=== PATIENT | female | born 1985 | race Two or more races ===

== ENCOUNTER 2018-07-06 16:29 | Outpatient (CLI) | payer OTHER | END 2018-07-06 18:48 | disposition home or self-care (01) | LOC: NST 16:29 | DX: Z34.82 Encounter for supervision of other normal pregnancy, second trimester (principal) ==

== ENCOUNTER 2018-09-15 09:08 | Inpatient (IN) | payer OTHER ==
[~2018-09-15] VITALS: Ht 154.9 cm; Wt 56.7 kg
[2018-10-23] MEDS ORDERED: PROBIOTIC1 EAC2 (10:03)
[2018-10-23] MEDS ORDERED: PRENATAL TABLE1 EAC4 (10:03)
== END 2018-10-25 16:08 | DRG 807 ==
LOC: LDR 09-29 11:45 → OB/GYN 10-23 07:22
PROVIDERS: ADMIT Obstetrics & Gynecology
PROC: 10E0XZZ Delivery of Products of Conception, External Approach (ICD-10-PCS; principal; 2018-10-23)
PROC: 0KQM0ZZ Repair Perineum Muscle, Open Approach (ICD-10-PCS; 2018-10-23)
PROC: 0W8NXZZ Division of Female Perineum, External Approach (ICD-10-PCS; 2018-10-23)
PROC: 4A0HXFZ Measurement of Products of Conception, Cardiac Rhythm, External Approach (ICD-10-PCS; 2018-10-23)
DX: O70.1 Second degree perineal laceration during delivery (principal); Z37.0 Single live birth; Z3A.39 39 weeks gestation of pregnancy

== ENCOUNTER 2018-10-20 08:32 | Outpatient (CLI) | payer OTHER | END 2018-10-20 09:12 | disposition home or self-care (01) | LOC: NST 08:32 | DX: Z34.83 Encounter for supervision of other normal pregnancy, third trimester (principal) ==

== ENCOUNTER 2022-05-25 09:48 | Outpatient (CLI) | payer OTHER ==
[~2022-05-25 09:48] MED LIST: PRENATAL TABLE1 EAC4; PROBIOTIC1 EAC2
== END 2022-05-25 09:59 | disposition home or self-care (01) ==
LOC: SONOGRAMA 09:48
PROVIDERS: ATTEND Obstetrics & Gynecology
DX: N63.21 Unspecified lump in the left breast, upper outer quadrant (principal); N63.12 Unspecified lump in the right breast, upper inner quadrant

== ENCOUNTER 2022-12-22 10:19 | Outpatient (CLI) | payer OTHER ==
[2022-12-22] MEDS ORDERED: SLOW FE142 MG PO (10:44)
== END 2022-12-22 14:32 | disposition home or self-care (01) ==
LOC: OBS/DEL 10:19
PROVIDERS: ATTEND Obstetrics & Gynecology
DX: O26.892 Other specified pregnancy related conditions, second trimester (principal); R10.2 Pelvic and perineal pain; Z3A.23 23 weeks gestation of pregnancy

== ENCOUNTER 2023-03-21 11:48 | Inpatient (IN) | payer OTHER ==
[~2023-03-21] VITALS: Ht 152.4 cm; Wt 51.3 kg
[~2023-03-21 11:48] MED LIST changes: +SLOW FE142 MG PO
[2023-04-08 20:57] LABS: HEMATOCRIT 36.5 % (36.0-45.00); HEMOGLOBIN 12.7 g/dL (12.0-15.00); MEAN CELL VOLUME 99.6 fL (80.00-100.00); MEAN CORPUSCULAR HEMOGLOBIN 34.6 pg (27.00-32.0); MEAN CORPUSCULAR HGB CONC 34.8 g/dl (32.0-36.0); PLATELET COUNT 263 K/uL (150-450); RED BLOOD COUNT 3.67 M/uL (4.00-6.00); RED CELL DISTRIBUTION WIDTH 13.3 % (11.5-14.5)
[2023-04-08 21:15] LABS: INR < 0.93; PARTIAL THROMBOPLASTIN TIME 26.8 SECONDS (22.0-34.0); PROTHROMBIN TIME 9.3 SECONDS (9.0-11.5)
[2023-04-08 21:21] LABS: ALBUMIN 3.1 gm/dL (3.4-5.0); BILIRUBIN TOTAL 0.34 mg/dL (0.3-1.2); CALCIUM 8.9 mg/dL (8.5-10.1); CREATININE SERUM 0.6 mg/dL (0.55-1.02); GFR 113.76; GLOBULINA 3.3 G/DL (2.4-3.5); POTASSIUM 3.6 mEq/L (3.5-5.1); TOTAL PROTEIN 6.4 gm/dL (6.4-8.2)
[2023-04-09 09:49] LABS: HEMATOCRIT 33.8 % (36.0-45.00); HEMOGLOBIN 11.7 g/dL (12.0-15.00); MEAN CELL VOLUME 100.9 fL (80.00-100.00); MEAN CORPUSCULAR HEMOGLOBIN 34.9 pg (27.00-32.0); MEAN CORPUSCULAR HGB CONC 34.6 g/dl (32.0-36.0); PLATELET COUNT 226 K/uL (150-450); RED BLOOD COUNT 3.35 M/uL (4.00-6.00); RED CELL DISTRIBUTION WIDTH 13.3 % (11.5-14.5)
== END 2023-04-10 13:16 | disposition home or self-care (01) | DRG 807 ==
LOC: LDR 04-08 20:27 → OB/GYN 04-08 20:27
PROVIDERS: Obstetrics & Gynecology; ADMIT Obstetrics & Gynecology Maternal & Fetal Medicine; ATTEND Obstetrics & Gynecology Maternal & Fetal Medicine
PROC: 10E0XZZ Delivery of Products of Conception, External Approach (ICD-10-PCS; principal; 2023-04-08)
PROC: 0W8NXZZ Division of Female Perineum, External Approach (ICD-10-PCS; 2023-04-08)
PROC: 4A1HXCZ Monitoring of Products of Conception, Cardiac Rate, External Approach (ICD-10-PCS; 2023-04-08)
DX: O80 Encounter for full-term uncomplicated delivery (principal); Z37.0 Single live birth; Z3A.38 38 weeks gestation of pregnancy; Z20.822 Contact with and (suspected) exposure to COVID-19

== ENCOUNTER 2023-11-24 12:00 | Outpatient (CLI) | payer OTHER ==
[2023-11-24 12:38] LABS: HEMATOCRIT 36.3 % (36.0-45.00); HEMOGLOBIN 12.8 g/dL (12.0-15.00); MEAN CELL VOLUME 95.2 fL (80.00-100.00); MEAN CORPUSCULAR HEMOGLOBIN 33.6 pg (27.00-32.0); MEAN CORPUSCULAR HGB CONC 35.3 g/dl (32.0-36.0); PLATELET COUNT 317 K/uL (150-450); RED BLOOD COUNT 3.82 M/uL (4.00-6.00); RED CELL DISTRIBUTION WIDTH 13.1 % (11.5-14.5)
[2023-11-24 13:34] LABS: FERRITIN 43.1 NG/ML (8-252)
== END 2023-11-24 12:15 | disposition home or self-care (01) ==
LOC: LAB 12:00
PROVIDERS: ATTEND Internal Medicine
DX: D50.8 Other iron deficiency anemias (principal)

== ENCOUNTER 2023-12-28 10:13 | Outpatient (CLI) | payer OTHER | END 2023-12-28 10:22 | disposition home or self-care (01) | LOC: MAMO-SONO 10:13 | PROVIDERS: ATTEND Obstetrics & Gynecology | DX: N63.11 Unspecified lump in the right breast, upper outer quadrant (principal); N63.12 Unspecified lump in the right breast, upper inner quadrant ==

== ENCOUNTER 2024-11-07 14:24 | Emergency (ER) | payer OTHER ==
[~2024-11-07] VITALS: Ht 154.9 cm; Wt 46.3 kg
[2024-11-07] MEDS ORDERED: GUAIFEN/DEXTROMETHORPHAN/PE 10 ML BLIST.PACK PO ONE (17:15)
[2024-11-07 17:38] LABS: BASO % 1.0 % (0.1-1.2); EOS # 0.33 (0.04-0.54); EOS % 5.7 % (0.7-7.0); LYMPH # 1.33 (1.18-3.74); LYMPH % 23.1 % (19.3-53.1); MEAN PLATELET VOLUME 9.60 fl (9.4-12.4); MONO # 0.58 (0.24-0.82); MONO % 10.1 % (4.7-12.5); NEUT # 3.45 (1.56-6.13); NEUT % 59.8 % (34.0-71.1); RED CELL DISTRIBUTION WIDTH 12.5 % (11.6-14.4)
[2024-11-07 17:51] LABS: COVID-19 AG NEGATIVE (NEGATIVE)
[2024-11-07 18:15] LABS: BUN CREA RATIO 22.0 (7.0-25.0); CREATININE SERUM 0.73 mg/dL (0.55-1.02); GFR 89.7; GLUCOSE FASTING 92.0 mg/dL (65-100); OSMOLALITY SERUM 280.0 MOSM/KG (275-295)
== END 2024-11-07 20:34 | disposition home or self-care (01) ==
LOC: ER 14:24
PROVIDERS: Emergency Medicine
DX: J40 Bronchitis, not specified as acute or chronic (principal); B34.9 Viral infection, unspecified; Z20.822 Contact with and (suspected) exposure to COVID-19

== ENCOUNTER 2025-01-02 08:38 | Outpatient (CLI) | payer OTHER | END 2025-01-02 08:42 | disposition home or self-care (01) | LOC: MAMO-SONO 08:38 | PROVIDERS: ATTEND Obstetrics & Gynecology | DX: N63.21 Unspecified lump in the left breast, upper outer quadrant (principal); N63.12 Unspecified lump in the right breast, upper inner quadrant ==